=== PATIENT | female | born 2005 | race Caucasian/White ===

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

== ENCOUNTER 2024-02-15 12:43 | Outpatient (CLI) | payer BC, SELFPAY ==
--- NOTE | 2024-02-15 12:44 | US_ITS ---
PROCEDURE INFORMATION: Exam: US Left Breast, Complete Exam date and time: 02/15/2024 1:17 PM Age: 19 years old Clinical indication: Left; Breast lump TECHNIQUE: Imaging protocol: Complete ultrasound of all four quadrants of the left breast and the retroareolar regions, including ultrasound of the axilla when performed. COMPARISON: US BIOPSY BREAST LT 07/25/2023 10:30 AM FINDINGS: ULTRASOUND: Breast ultrasound findings: Sonographic images of the left 4 o'clock axis 3 cm from the nipple demonstrates well-circumscribed ovoid hypoechoic solid mass containing a clip. It is stable in size and configuration compared to prior examination dated 07/25/2023 . It measures 2.2 x 1.9 x 1.2 cm. In the left retroareolar region, Jose David replaced oval is likely an island of fibroglandular structures. Two solid lesion is not definitively seen. The area of interest measures 0.8 x 0.8 x 0.3 cm. No other solid or cystic masses in the left breast. No axillary adenopathy. IMPRESSION: Stable previously biopsied mass in the left breast. Questionable additional hypoechoic mass in the left retroareolar region. A six-month follow-up targeted left breast ultrasound is recommended to ensure stability over time. ASSESSMENT: BI-RADS Category 3: Probably benign.
== END 2024-02-15 23:59 | disposition home or self-care (01) ==
LOC: RAD 12:44
PROVIDERS: Visit Provider Surgery
DX: N63.42 Unspecified lump in left breast, subareolar (principal)
CPT/HCPCS: 76641

== ENCOUNTER 2024-04-10 11:36 | Emergency (ER) | payer BC, SELFPAY ==
[2024-04-10 11:40] VITALS: BP 121/75; PULSE 74; RESP 19; TEMP 36.8; O2SAT 100
--- NOTE | 2024-04-10 12:10 | EXP.UTC ---
Discharge Plan Disposition Patient Disposition: Home, Self-Care Condition: Good Prescriptions Prescriptions: New sulfamethoxazole-trimethoprim [Bactrim DS] 800-160 mg Tablet 1 tab PO BID Qty: 20 0RF cephalexin 500 mg capsule 500 mg PO QID 10 Days Qty: 40 0RF mupirocin 2 % ointment 1 applic topical TID 7 Days Qty: 15 0RF methylprednisolone 4 mg Tablets,Dose Pack 4 mg PO DIRECTED 6 Days Qty: 21 0RF Rx Instructions: Take 1 pack as directed for 6 days No Action norethindrone-e.estradiol-iron [Blisovi Fe 10/08 ()] 1 mg-20 mcg (21)/75 mg (7) tablet 1 tab PO DAILY Referrals Follow up/Referrals: Provider,Referral, MD [Primary Care Provider] - See instructions Activity Restrictions/Add. Instructions Additional Instructions/Restrictions: Keep the wounds clean and dry. Watch the wounds for signs of worsening infection, such as worsening redness, swelling, drainage, fever. etc. Take tylenol or ibuprofen for pain. Follow up with your regular doctor. GO TO THE ER FOR ANY WORSENING SYMPTOMS OR CONCERNS. Clinical Impressions Clinical Impression: Cellulitis, Impetigo Instructions Patient Instructions: Cellulitis, Cephalexin, Mupirocin Discharge ED Provider: Santy Marie [facility] General Stated complaint: red, swollen on right leg and hand Mode of Arrival: Ambulatory Source of Information: Patient Limitations: No Limitations Time Seen by Provider: 04/10/24 11:54 Description of Symptoms (Recalled from Triage Doc. by RN): PATIENT C/O RASH TO RIGHT LEG X 2.5 WEEKS HEENT Symptoms (Recalled from RN notes): No Resp Symptoms (Recalled from RN notes): No Skin Symptoms (Recalled from RN notes): Yes MS Symptoms (Recalled from RN notes): No Functional Status (Recalled from RN notes): WNL History of Present Illness Provider Complaint: She states that she has had worsening redness and tenderness of the front of her right lower leg. She states that she was bit by an insect before her symptoms started. Related Data Home Medications Medication Instructions Recorded Confirmed norethindrone 1 mg-ethinyl 1 tab PO DAILY 08/02/23 04/10/24 estradiol 20 mcg (21)-iron 75 mg (7) tablet (Blisovi Fe 10/08 (28)) Previous Rx's Medication Instructions Recorded cephalexin 500 mg capsule 500 mg PO QID 10 days #40 caps 04/10/24 methylprednisolone 4 mg tablets in 4 mg PO DIRECTED 6 days #21 tabs 04/10/24 a dose pack mupirocin 2 % topical ointment 1 applic topical TID 7 days #15 04/10/24 grams sulfamethoxazole 800 1 tab PO BID #20 tabs 04/10/24 mg-trimethoprim 160 mg tablet (Bactrim DS) Allergies Allergy/AdvReac Type Severity Reaction Status Date / Time No Known Allergies Allergy Verified 02/23/24 09:11 Worker's Comp Is this a Worker's Comp case?: No [facility] Disclaimer: The information contained in this section may have been updated after the patient was seen, as this information can be updated by other users. Surgical History History of tonsillectomy and adenoidectomy Social History Smoking Status: Never smoker second hand exposure: No alcohol intake: never current occupational status: employed Travel in the last 8 weeks: None household members: family housing: house ROS Obtained: Yes All systems reviewed & no additional complaints except as documented Constitutional Constitutional: Denies chills and Denies fever(s) Eyes Eyes: Denies eye discharge ENT Ears, Nose, Mouth, and Throat: Denies dizziness, Denies otalgia and Denies sore throat Cardiovascular Cardiovascular: Denies chest pain Respiratory Respiratory: Denies shortness of breath, Denies chest congestion, Denies cough, Denies stridor and Denies wheezing Gastrointestinal Gastrointestingal: Denies nausea or vomiting Musculoskeletal Musculoskeletal: Reports system reviewed and no additional complaints, except as documented and Denies arthralgias Integumentary/Breasts Skin/Breast: Reports as per HPI and Reports rash Neurologic Neurologic: Denies dizziness and Denies paresthesias Allergic/Immunologic Allergic/Immunologic: Denies wheezing Physical Exam General General appearance: alert and in no apparent distress Head Head exam: atraumatic, normocephalic and normal inspection Eye Eye exam: Present normal appearance, PERRL and EOMI ENT ENT exam: Present normal exam, normal oropharynx, mucous membranes moist, TM's normal bilaterally and normal external ear exam Neck Neck exam: Present normal inspection, full ROM and trachea midline; Absent meningismus or lymphadenopathy Chest Chest inspection: Present normal inspection and symmetric chest wall rise; Absent tenderness Respiratory Respiratory exam: Present normal lung sounds bilaterally; Absent respiratory distress Cardiovascular Cardiovascular exam: Present regular rate and normal rhythm; Absent JVD Abdominal Exam Abdominal exam: Present soft and normal bowel sounds; Absent distention, tenderness or guarding Extremities Exam Extremities exam: Present normal inspection, full ROM and normal capillary refill; Absent calf tenderness Back Exam Back exam: Present normal inspection; Absent tenderness Neurological Exam Neurological exam: Present alert and oriented X3 Psychiatric Psychiatric exam: Present normal affect and normal mood Skin Skin exam: Present erythema (there is erythema, mild swelling and several crusted lesion on her right leg. ) Lymphatic Lymphatic Findings: no adenopathy Medical Decision Making Medical Records Medical records reviewed: No I reviewed the patient's medical records. Trevon Inquiry Pt receiving controlled substance: No Vital Signs: 04/10/24 11:40 Temperature 98.2 F Temperature Source Oral Pulse Rate [Left Brachial] 74 Respiratory Rate 19 Blood Pressure [Left Arm] 121/75 Blood Pressure Mean [Left Arm] 90 Blood Pressure Source [Left Arm] Automatic Cuff Blood Pressure Position [Left Arm] Sitting 02 Sat by Pulse Oximetry 100 Oxygen Delivery Method Room Air
[2024-04-10 12:24] VITALS: BP 121/75; PULSE 74; RESP 19; TEMP 36.8; O2SAT 100
== END 2024-04-10 12:27 | disposition home or self-care (01) ==
PROVIDERS: Emergency Provider Nurse Practitioner Family
DX: L03.115 Cellulitis of right lower limb (principal); B95.61 Methicillin susceptible Staphylococcus aureus infection as the cause of diseases classified elsewhere; L01.00 Impetigo, unspecified
CPT/HCPCS: 87070; 87077; 87186; 87205; 99212; 99214; G0463

== ENCOUNTER 2024-09-05 11:06 | Outpatient (CLI) | payer BC, SELFPAY ==
--- NOTE | 2024-09-05 11:07 | US_ITS ---
PROCEDURE INFORMATION: Exam: US Left Breast, Complete US Right Breast, Complete Exam date and time: 09/05/2024 11:13 AM Age: 19 years old Clinical indication: Short-term radiographic follow-up of the questionable left breast mass. Palpable abnormality in the right upper outer quadrant. TECHNIQUE: Imaging protocol: Complete ultrasound of all four quadrants of the left breast and the retroareolar regions, including ultrasound of the axilla when performed. Complete ultrasound of all four quadrants of the right breast and the retroareolar regions, including ultrasound of the axilla when performed. COMPARISON: US BREAST LT COMPLETE 02/15/2024 1:17 PM FINDINGS: ULTRASOUND: Breast ultrasound findings: Sonographic images of the right breast demonstrates 6 uniformly hypoechoic well-circumscribed solid masses 1 of which correlates with the patient's complaint of a palpable abnormality in the right 10 o'clock axis 9 cm from the nipple. The masses are noted as follows: Palpable right 10 o'clock axis 9 cm from the nipple 1.2 x 0.7 x 1.1 cm, 7 o'clock axis 4 cm from the nipple 1.0 x 1.0 x 0.8 cm, 10 o'clock axis 5 cm from the nipple 1.1 x 1.2 x 0.7 cm, 10 o'clock axis 4 cm from the nipple 0.4 x 0.8 x 0.2 cm, 12 o'clock axis 3 cm from the nipple 1.2 x 1.0 x 0.6 cm, and 12 o'clock axis 4 cm from the nipple 0.7 x 0.9 x 0.4 cm. No axillary adenopathy. Sonographic images of the left breast demonstrates 2 hypoechoic solid masses, 1 of which underwent prior biopsy in the 4 o'clock axis 3 cm from the nipple and measures 1.8 x 1.2 x 2.0 cm. The second solid mass is noted in the 2 o'clock axis 3 cm from the nipple measuring 0.6 x 0.4 x 0.6 cm. No focal masses in the retro areolar region. No axillary adenopathy. IMPRESSION: Palpable abnormality in the right breast corresponds to 1 of 8 solid masses noted bilaterally. Their multiplicity and uniformity are highly suggestive of a benign etiology such as multiple fibroadenomas. A six-month follow-up bilateral breast ultrasound is recommended to ensure stability over time ASSESSMENT: BI-RADS Category 3: Probably benign.
== END 2024-09-05 23:59 | disposition home or self-care (01) ==
LOC: RAD 11:07
PROVIDERS: PCP Surgery; Visit Provider Surgery
DX: D24.2 Benign neoplasm of left breast (principal); N63.11 Unspecified lump in the right breast, upper outer quadrant
CPT/HCPCS: 76641

== ENCOUNTER 2025-03-18 07:48 | Outpatient (CLI) | payer OTHER, SELFPAY ==
--- OUTSIDE RECORDS SUMMARY | 2025-01-31 13:00 | XMS_ITS | Encounter Summary ---
Author Organization Healthcare Address [address] [place] [address] Care Team Providers Care Package Pick Up Name Role Phone Pcp, No Primary Care Provider Unavailabl e Reason for Visit * Reason Comments Annual Exam Here for annual with pap. Encounter Details Date Type Department Care Team (Late st Contact Info) Description 01/31/2025 1:00 PM EDT Procedure Visit Obstetrics & Gynecology [address] [place] [address] Dena Phoenix APRN, DNP [address] [place] [address] Encounter for gynecological examination without [...] nursing note reviewed. Exam conducted with a automotive engineer present. Pap collected today. Assessment Assessment & [...] EDT Office Visit Obstetrics & Gynecology [address] [place] [address] Agatha Bauer APRN, CHRISTINE [address] [place] [address] documented as of this encounter Procedures Procedure Name Priority Date/Time Associated Diagnosis Comments REFERRED THINPREP PAP REFLEX TO HPV (SO) Routine 01/31/2025 1:23 PM EDT Encounter for gynecological examination without abnormal finding documented in this encounter Results * Referred ThinPrep Pap Reflex to HPV (SO) (01/31/2025 1:23 PM EDT) Pap, Source Cx/Vagina 02/07/2025 12:21 PM EDT [facility] ([facility]) EER Referred ThinPrep Pap Test See Note 02/07/2025 12:21 PM EDT [facility] ([facility]) Pap, ThinPrep Normal 02/07/2025 12:21 PM EDT [facility] ([facility]) Swab Vaginal and cervical cytologic material / Unknown Non-blood Collection / Unknown 01/31/2025 1:23 PM EDT 01/31/2025 5:49 PM EDT Narrative [facility] ([facility]) - 02/07/2025 12:21 PM EDT Authorized individuals can access the [facility] Enhanced Report with an [facility] Connect account using the following link. Your local lab can assist you in obtaining the patient report if you don't have a Connect account. [email or web address] Performed By: [facility] [address] [place] [address] Marketing Producer: Jordan Olson MD, PhD CLIA Number: [id number] SPECIMEN PART A. Cervical, Endocervical, Vaginal, ThinPrep Pap (Occ Ther) CYTOLOGY HX Date of Last Menstrual Period: n FINAL DIAGNOSIS INTERPRETATION: Negative for Intraepithelial Lesion or Malignancy. SPECIMEN ADEQUACY:Satisfactory for evaluation. Endocervical/transformation zone component present. Electronically Signed Out : Gayle Franklin Performed by: [facility] [address] [place] [address] Tiarra Vinson MD, us Dena Phoenix APRN, DNP LAB REF LAB BLOOD AND F LUID ORD Final Result [facility] ([facility]) [address] [place] [address] documented in this encounter Visit Diagnoses Diagnosis [...] documented as of this encounter Care Teams Package Pick Up Relationship Specialty Start Date End Date Pcp, [place] [address] PCP - General Family Medicine 12/31/24 documented as of this encounter
--- OUTSIDE RECORDS SUMMARY | 2025-03-18 07:51 | XMS_ITS | Clinical Summary ---
Author Organization Healthcare Address [address] [place] [address] Care Team Providers Care Slasher Operator Name Role Phone Pcp, No Primary Care Provider Unavailabl e Allergies No known active allergies Medications Guerline ROMERO 10/08 1-20 MG-MCG tablet 12/24/2024 Active Active Problems No known active problems Encounters Date Type Department Care Team Description 02/07/2025 Results Follow-Up Obstetrics & Gynecology [address] [place] [address] Dena Phoenix APRN, DNP 01/31/2025 1:00 PM EDT Procedure Visit Obstetrics & Gynecology [address] [place] [address] Dena Phoenix APRN, DNP Encounter for gynecological examination without abnormal finding (Primary Dx); Encounter for control pills maintenance; Fibroadenoma of both breasts 01/31/2025 Travel 01/24/2025 Travel 01/04/2025 Telephone Obstetrics & Gynecology [address] [place] [address] Dena Phoenix APRN, DNP HCN Clinical Concern/Question 12/31/2024 1:30 PM EDT Office Visit Obstetrics & Gynecology [address] [place] [address] Dena Phoenix APRN, DNP Palpable mass of breast (Primary Dx); Fibroadenoma of both breasts 12/31/2024 Travel 12/24/2024 Travel from Last 3 Months Family History Medical History Relation Name Comments Lupus Mother Relation Name Status Comments Father Alive Mother Alive Paternal Grandmother Alive Social History Tobacco Use Types Packs/Day Years [...] on file Sexual Orientation Not on file Last Filed Vital Signs Vital Sign Reading Time Taken Comments Blood Pressure 112/70 01/31/2025 1:09 PM EDT Pulse 96 01/31/2025 1:09 PM EDT Temperature 37.2 C (98.9 F) 12/31/2024 1:31 PM EDT Respiratory Rate 14 01/31/2025 1:09 PM EDT Oxygen Saturation 99% 01/31/2025 1:09 PM EDT Inhaled Oxygen Concentration - - Weight 67.3 kg (148 lb 5.9 oz) 01/31/2025 1:09 P M EDT Height 177.8 cm (5' 10 ) 01/31/2025 1:09 PM EDT Body Mass Index 21.29 01/31/2025 1:09 PM EDT Plan of Treatment Upcoming Encounters Date Type Department Care Team (Late st Contact Info) Description 02/04/2026 1:00 PM EDT Office Visit Obstetrics & Gynecology [address] [place] [address] Agatha Bauer, SOFTBALL WINDER, CNM [address] [facility] [address] [place] [address] Health Maintenance Due Date Last Done Comments [facility]-Chlamydia and Gonorrhea Screening 2004 [facility]-HIV Screening 2004 [facility]-Hepatitis C Screening 2004 [facility]-Infant/Child/Adol SDOH Screenings 2004 [facility]-IPV Vaccines (2 of 3 - 4-dose series) 02/01/2008 01/04/2008 [id number] Vaccine (#1) 01/02/2009 HPV Vaccines (3 - Risk 3-dose series) 12/13/2017 08/15/2017, 08/09/2016 [facility]- SDOH Screenings 01/02/2022 [facility]-Adult SDOH Screenings 01/02/2022 [facility]-Pneumococcal Vaccine: Pediatrics (0 to 5 Years) and At-Risk Patients (6 to 49 Years) (1 of 2 - PCV) 01/02/2023 [facility]-Zoster Vaccines (1 of 2) 01/02/2023 01/04/2008, 01/05/2005 [facility]-Pap Smear 01/02/2025 [facility]-DTaP,Tdap,and Td Vaccines (6 - Td or Tdap) 02/19/2025 02/19/2015, 04/12/2005, 2004, Additional history exists [facility]-Influenza Vaccine (Season Ended) 2025 09/10/2020, 08/15/2017, 08/09/2016, Additional history exists [facility]-Depression Screening 12/31/2025 12/31/2024 [facility]-Hepatitis B Vaccines Completed 004, 2004, 2004 [facility]-Varicella Vaccines Completed 01/04/2008, 2004 [facility]-HIB Vaccines Aged Out No longer e ligible based on patient's age to complete this topic [facility]-Hepatitis A Vaccines Aged Out No longer eligible based on patient's age to complete this topic [facility]-Rotavirus Vaccines Aged Out No lo nger eligible based on patient's age to complete this topic Procedures Procedure Name Priority Date/Time Associated Diagnosis Comments REFERRED THINPREP PAP REFLEX TO HPV (SO) Routine 01/31/2025 1:23 PM EDT Encounter for gynecological examination without abnormal finding from Last 3 Months Results * Referred ThinPrep Pap Reflex to HPV (SO) (01/31/2025 1:23 PM EDT) Pap, Source Cx/Vagina 02/07/2025 12:21 PM EDT [facility] ([facility]) EER Referred ThinPrep Pap Test See Note 02/07/2025 12:21 PM EDT [facility] ([facility]) Pap, ThinPrep Normal 02/07/2025 12:21 PM EDT [facility] ([facility]) Swab Vaginal and cervical cytologic material / Unknown Non-blood Collection / Unknown 01/31/2025 1:23 PM EDT 01/31/2025 5:49 PM EDT Narrative [facility]) - 02/07/2025 12:21 PM EDT Authorized individuals can access the [email or web address] Enhanced Report with an [facility] Connect account using the following link. Your local lab can assist you in obtaining the patient report if you don't have a Connect account. [email or web address] Performed By: [facility] [address] [place] [address] Block Mason: Jordan Olson MD, PhD CLIA Number: [id number] SPECIMEN PART A. Cervical, Endocervical, Vaginal, ThinPrep Pap (Senior Category Manager) CYTOLOGY HX Date of Last Menstrual Period: n FINAL DIAGNOSIS INTERPRETATION: Negative for Intraepithelial Lesion or Malignancy. SPECIMEN ADEQUACY:Satisfactory for evaluation. Endocervical/transformation zone component present. Electronically Signed Out : Gayle Franklin Performed by: [facility] [place] [address] Tiarra Vinson MD, us Dena Phoenix APRN, DNP LAB REF LAB BLOOD AND F LUID ORD Final Result [facility]) [address] [place] [address] from Last 3 Months Insurance [facility] MEDICAID Care Teams Slasher Operator Relationship Specialty Start Date End Date Pcp, Bharti [address] [place] [address] PCP - General Family Medicine 12/31/24
--- OUTSIDE RECORDS SUMMARY | 2025-03-18 07:51 | XMS_ITS | Patient Health Record ---
Author Organization [facility] Address [address] [place] [address] [place] [address] Care Team Providers Care Shelter Case Manager Name Role Phone Mendy Stanton Primary Care Provider [phone] MENDY STANTON Unavailable Unavaila ble Allergies No Known Allergies Reason For Referral No Information Social History Tobacco Use: Social History Observation Description Date Details (start date - stop date) Never Smoker NA - NA Smoking: Question Answer Notes Are you a: nonsmoker Problems Problem Type SNOMED Code ICD Code Onset Dates Problem Status W/U Status Risk Notes Problem Mass of lower outer quadrant of left breast (N63.23) Active confirmed Plan Of Treatment No Information Insurance Providers Payer Name Payer Address Payer Phone Subscriber Number Group Number Insured Name Patient Relationship to Insured Coverage Start Date Coverage End Date [employer] [address] [address] [place] [address] [id number] Sharmila Nava Self - patient is the insured Medical (General) History Surgical History Surgery Date(Month/Year) Tonsils and Adenoids removed 2009
--- OUTSIDE RECORDS SUMMARY | 2025-03-18 07:51 | XMS_ITS | Encounter Summary ---
Author Organization Healthcare Address [address] [place] [address] Care Team Providers Care Offset Pressman Name Role Phone Pcp, No Primary Care Provider Unavailabl e Encounter Details Date Type Department Care Team (Late st Contact Info) Description 02/07/2025 Results Follow-Up Obstetrics & Gynecology [address] [place] [address] Dena Phoenix, TERESA, DNP [address] [place] [address] Social History Tobacco Use Types Packs/Day Years Used Date Smoking Tobacco: Never Smokeless Tobacco: Never Alcohol Use Standard Drinks/Week Comments Never 0 (1 standard drink = 0.6 oz pur e alcohol) PHQ-2 Answer Date Recorded Patient Health Questionnaire-2 Score 0 12/31/2024 Comments No Sex and Gender Information Value Date Recorded Sex Assigned at Not on file Legal Sex Female 2:36 PM EST Gender Identity Not on file Sexual Orientation Not on file documented as of this encounter Plan of Treatment Upcoming Encounters Date Type Department Care Team (Late st Contact Info) Description 02/04/2026 1:00 PM EDT Office Visit Obstetrics & Gynecology [address] [place] [address] Agatha Bauer, STOCK CONTROL CLERK, CNM [address] [facility] [address] [place] [address] documented as of this encounter Visit Diagnoses Not on filedocumented in this encounter Additional Health Concerns Assessment Noted Time A fall risk assessment has been complete d for the patient 01/31/2025 1:10 PM EDT A Body Mass Index follow-up plan has been documented for the patient 01/31/2025 1:26 PM EDT documented as of this encounter Care Teams Offset Pressman Relationship Specialty Start Date End Date Pcp, [place] [address] PCP - General Family Medicine 12/31/24 documented as of this encounter
--- OUTSIDE RECORDS SUMMARY | 2025-03-18 07:51 | XMS_ITS | Encounter Summary ---
Author Organization Healthcare Address [address] [place] [address] Care Team Providers Care Theatre Manager Name Role Phone Pcp, No Primary Care Provider Unavailabl e Encounter Details Date Type Department Care Team (Latest Contact Info) Description 01/24/2025 Travel Social History Tobacco Use Types Packs/Day Years Used Date Smoking Tobacco: Never Smokeless Tobacco: Never Alcohol Use Standard Drinks/Week Comments Never 0 (1 standard drink = 0.6 oz pur e alcohol) PHQ-2 Answer Date Recorded Patient Health Questionnaire-2 Score 0 12/31/2024 Comments Unknown Sex and Gender Information Value Date Recorded Sex Assigned at Not on file Legal Sex Female 2:36 PM EST Gender Identity Not on file Sexual Orientation Not on file documented as of this encounter Plan of Treatment Upcoming Encounters Date Type Department Care Team (Late st Contact Info) Description 02/04/2026 1:00 PM EDT Office Visit Obstetrics & Gynecology [address] [place] [address] Agatha Bauer, LEAD PERFORMANCE SUPPORT ANALYST, CNM [address] [facility] [address] [place] [address] documented as of this encounter Visit Diagnoses Not on filedocumented in this encounter Additional Health Concerns Assessment Noted Time A fall risk assessment has been complete d for the patient 12/31/2024 1:34 PM EDT A Body Mass Index follow-up plan has been documented for the patient 01/01/2025 7:55 AM EDT documented as of this encounter Care Teams Theatre Manager Relationship Specialty Start Date End Date Pcp, Bharti [address] [place] [address] PCP - General Family Medicine 12/31/24 documented as of this encounter
--- OUTSIDE RECORDS SUMMARY | 2025-03-18 07:51 | XMS_ITS | Encounter Summary ---
Author Organization Healthcare Address [address] [place] [address] Care Team Providers Care Senior Painter Name Role Phone Pcp, No Primary Care Provider Unavailabl e Encounter Details Date Type Department Care Team (Latest Contact Info) Description 01/31/2025 Travel Social History Tobacco Use Types Packs/Day [...] EDT Office Visit Obstetrics & Gynecology [address] [place] [address] Agatha Bauer, PAY CLERK, CNM [address] [facility] [address] [place] [address] documented as of this encounter Visit Diagnoses Not on filedocumented in this encounter Additional Health Concerns Assessment Noted Time A fall risk assessment has been complete d for the patient 01/31/2025 1:10 PM EDT A Body Mass Index follow-up plan has been documented for the patient 01/31/2025 1:26 PM EDT documented as of this encounter Care Teams Senior Painter Relationship Specialty Start Date End Date Pcp, No [address] [place] [address] PCP - General Family Medicine 12/31/24 documented as of this encounter
--- NOTE | 2025-03-18 07:52 | US_ITS ---
PROCEDURE INFORMATION: Exam: US Right Breast, Complete US Left Breast, Complete Exam date and time: 03/18/2025 8:27 AM Age: 20 years old Clinical indication: Six-month follow-up for probably benign masses, initiated 07/05/2023 and 09/05/2024. TECHNIQUE: Imaging protocol: Complete ultrasound of all four quadrants of the right breast and the retroareolar regions, including ultrasound of the axilla when performed. Complete ultrasound of all four quadrants of the left breast and the retroareolar regions, including ultrasound of the axilla when performed. COMPARISON: US BREAST RT COMPLETE 09/05/2024 11:24 AM US BREAST LT COMPLETE 07/05/2023 2:37 PM FINDINGS: ULTRASOUND: Breast ultrasound findings: Ultrasound images of both breasts including the retroareolar regions, all 4 quadrants and the axilla. Bilateral oval solid avascular masses. On the right at 7 o'clock 4 cm from the nipple measuring 0.9 x 0.9 x 0.6 cm which measured 1.0 x 1.0 x 0.8 cm on 09/05/2024; at 10 o'clock 9 cm from the nipple measuring 1.2 x 1.3 x 0.7 cm which measured 1.2 x 0.7 x 1.1 cm on 09/05/2024; at 10 o'clock 5 cm from the nipple measuring 1.0 by 1.2 x 0.6 cm which measured 1.2 x 0.7 x 1.2 cm on 09/05/2024; and at 10 o'clock 4 cm from the nipple measuring 1.1 x 1.0 x 0.5 cm - this is a finding; however, previously, the mass annotated at 10 o'clock 4 cm from the nipple on 09/05/2024 is more superficial. Sonographically unremarkable axillary lymph node. On the left, at 2 o'clock 3 cm from the nipple measuring 1.0 x 1.0 x 0.6 cm which measured 0.6 x 0.6 x 0.4 cm on 09/05/2024; and at 4 o'clock 3 cm from the nipple measuring 2.1 x 1.8 x 1.0 cm, with related biopsy clip, which measured 1.8 x 1.5 x 2.0 cm on 07/05/2023. No findings are annotated in the retro areolar region. Sonographically unremarkable axillary lymph node. IMPRESSION: See comments There are probably 2 masses on the right at 10 o'clock 4 cm from the nipple, deep and superficial and suggest recall for targeted sonography at this location. Otherwise, similar probably benign bilateral masses, the dominant mass on the left at 3 o'clock with notation indicating fibroadenoma, with continued six-month follow up bilateral sonography recommended unless otherwise clinically indicated. ASSESSMENT: BI-RADS Category 0: Incomplete: Need Additional Imaging Evaluation.
== END 2025-03-18 23:59 | disposition home or self-care (01) ==
LOC: RAD 07:49
PROVIDERS: Visit Provider Surgery
DX: N63.23 Unspecified lump in the left breast, lower outer quadrant (principal); N63.13 Unspecified lump in the right breast, lower outer quadrant; N63.21 Unspecified lump in the left breast, upper outer quadrant; N63.11 Unspecified lump in the right breast, upper outer quadrant; N63.25 Unspecified lump in the left breast, overlapping quadrants
CPT/HCPCS: 76641

== ENCOUNTER 2025-04-01 08:10 | Outpatient (CLI) | payer OTHER, SELFPAY ==
--- OUTSIDE RECORDS SUMMARY | 2025-01-31 13:00 | XMS_ITS | Encounter Summary ---
Author Organization Healthcare Address [address] [place] [address] Care Team Providers Care Grease Man Name Role Phone Pcp, No Primary Care Provider Unavailabl e Reason for Visit * Reason Comments Annual Exam Here for annual with pap. Encounter Details Date Type Department Care Team (Late st Contact Info) Description 01/31/2025 1:00 PM EDT Procedure Visit Obstetrics & Gynecology [address] [place] [address] Dena Phoenix APRN, DNP [address] [place] [address] Encounter for gynecological examination without abnormal finding (Primary Dx); Encounter for control pills maintenance; Fibroadenoma of both breasts Social History Tobacco Use Types Packs/Day Years Used Date Smoking Tobacco: Never Smokeless Tobacco: Never Tobacco Cessation:Counseling Given: Not Answered Alcohol Use Standard Drinks/Week Comments Never 0 (1 standard drink = 0.6 oz pur e alcohol) PHQ-2 Answer Date Recorded Patient Health Questionnaire-2 Score 0 12/31/2024 Comments No Sex and Gender Information Value Date Recorded Sex Assigned at Not on file Legal Sex Female 2:36 PM EST Gender Identity Not on file Sexual Orientation Not on file documented as of this encounter Last Filed Vital Signs Vital Sign Reading Time Taken Comments Blood Pressure 112/70 01/31/2025 1:09 PM EDT Pulse 96 01/31/2025 1:09 PM EDT Temperature - - Respiratory Rate 14 01/31/2025 1:09 PM EDT Oxygen Saturation 99% 01/31/2025 1:09 PM EDT Inhaled Oxygen Concentration - - Weight 67.3 kg (148 lb 5.9 oz) 01/31/2025 1:09 P M EDT Height 177.8 cm (5' 10 ) 01/31/2025 1:09 PM EDT Body Mass Index 21.29 01/31/2025 1:09 PM EDT documented in this encounter Miscellaneous Notes * Progress Notes - Dena Phoenix, TERESA, RENA - 01/31/2025 1:00 PM EDT Gynecology Health Maintenance Note Subjective Sharmila Nava is a 20 y.o. in relationship, sexually active, here for a routine gynecologyhealth maintenance visit. Here today for annual exam. Has regular monthly cycles. She is currently on OCP for management of /cycle control needs. She bleeds during expected placebo week. Due first pap smear screening today. Has been receiving breast imaging q6mo to document stability of fibroadenomas within left breast. Next imaging scheduled for 02/2025. Denies bowel/bladder issues. Denies vaginal concerns including itch/odor/burn/discharge. Denies STD history or need for screening today. No further questions or concerns today. LMP: 01/26/25 Cycles: regular monthly bleed 4-5 days Contraception: OCP Pap: due Family hx: PGGM, maternal great aunt, paternal cousin- breast cancer The following chart sections have been reviewed and updated: Tobacco Allergies Meds Problems Med Hx Surg Hx OB Status Fam Hx Review of Systems Constitutional: Negative. HENT: Negative. Eyes: Negative. Respiratory: Negative. Cardiovascular: Negative. Gastrointestinal: Negative. Endocrine: Negative. Genitourinary: Negative. Musculoskeletal: Negative. Skin: Negative. Allergic/Immunologic: Negative. Neurological: Negative. Hematological: Negative. Psychiatric/Behavioral: Negative. Objective Visit Vitals BP 112/70 Pulse 96 Resp 14 Body mass index is 21.29 kg/m??. Physical Exam Constitutional: Appearance: Normal appearance. Genitourinary: Vulva normal. Right Labia: No rash, tenderness, lesions or skin changes. Left Labia: No tenderness, lesions, skin changes or rash. Vaginal bleeding (minimal) present. No vaginal discharge, erythema or tenderness. Right Adnexa: not tender and no mass present. Left Adnexa: not tender and no mass present. No cervical friability. Uterus is not enlarged. Breasts: Breast exam comments: Deferred due to recent exam and upcoming breast imaging. HENT: Head: Normocephalic. Neck: Thyroid: No thyromegaly. Cardiovascular: Rate and Rhythm: Normal rate and regular rhythm. Heart sounds: Normal heart sounds. Pulmonary: Effort: Pulmonary effort is normal. Breath sounds: Normal breath sounds. Abdominal: General: Bowel sounds are normal. Palpations: Abdomen is soft. There is no mass. Tenderness: There is no abdominal tenderness. Neurological: Mental Status: She is alert and oriented to person, place, and time. Skin: General: Skin is warm and dry. Psychiatric: Mood and Affect: Mood normal. Behavior: Behavior normal. Vitals and nursing note reviewed. Exam conducted with a assistant inventory manager present. Pap collected today. Assessment Assessment & Plan Encounter for gynecological examination without abnormal finding Orders: Referred ThinPrep Pap Reflex to HPV (SO) Encounter for control pills maintenance Fibroadenoma of both breasts -If pap WNL, plan to repeat in 3 yrs. -Continue OCP as prescribed. She does not need refills at this time, but enc to call if needs before next apt. -She has prescheduled imaging of breast tissue set for 02/2025 for re-evaluation of known fibroadenoma(s). -Reviewed health maintenance including diet, regular exercise, dietary supplementation and periodicexams. -Answered all patient questions. Agreeable to POC. -RTC prn or annually Time Spent: I personally spent a total of 25 minutes on this encounter. This time includes face to face with patient, counseling and discussion and/or coordination of care. documented in this encounter Plan of Treatment Upcoming Encounters Date Type Department Care Team (Late st Contact Info) Description 02/04/2026 1:00 PM EDT Office Visit Obstetrics & Gynecology [address] [place] [address] Agatha Bauer APRN, CHRISTINE [address] [place] [address] documented as of this encounter Procedures Procedure Name Priority Date/Time Associated Diagnosis Comments REFERRED THINPREP PAP REFLEX TO HPV (SO) Routine 01/31/2025 1:23 PM EDT Encounter for gynecological examination without abnormal finding documented in this encounter Results * Referred ThinPrep Pap Reflex to HPV (SO) (01/31/2025 1:23 PM EDT) Pap, Source Cx/Vagina 02/07/2025 12:21 PM EDT [facility] EER Referred ThinPrep Pap Test See Note 02/07/2025 12:21 PM EDT [facility] Pap, ThinPrep Normal 02/07/2025 12:21 PM EDT [facility] Swab Vaginal and cervical cytologic material / Unknown Non-blood Collection / Unknown 01/31/2025 1:23 PM EDT 01/31/2025 5:49 PM EDT Narrative [facility]) - 02/07/2025 12:21 PM EDT Authorized individuals can access the [facility] Enhanced Report with an [facility] Connect account using the following link. Your local lab can assist you in obtaining the patient report if you don't have a Connect account. [email or web address] Performed By: [facility] [address] [place] [id number] Fusion Operator: Jordan Olson MD, PhD CLIA Number: [id number] SPECIMEN PART A. Cervical, Endocervical, Vaginal, ThinPrep Pap (Mixer Crane Operator) CYTOLOGY HX Date of Last Menstrual Period: n FINAL DIAGNOSIS INTERPRETATION: Negative for Intraepithelial Lesion or Malignancy. SPECIMEN ADEQUACY:Satisfactory for evaluation. Endocervical/transformation zone component present. Electronically Signed Out : Gayle Franklin Performed by: [facility] [address] [place] [address] Tiarra Vinson MD, us Dena Phoenix APRN, DNP LAB REF LAB BLOOD AND F LUID ORD Final Result [facility] [address] [place] [address] documented in this encounter Visit Diagnoses Diagnosis Encounter for gynecological examination without abnormal finding- Primary Encounter for control pills maintenance Surveillance of previously prescribed contraceptive pill Fibroadenoma of both breasts documented in this encounter Additional Health Concerns Assessment Noted Time A fall risk assessment has been complete d for the patient 01/31/2025 1:10 PM EDT A Body Mass Index follow-up plan has been documented for the patient 01/31/2025 1:26 PM EDT documented as of this encounter Care Teams Grease Man Relationship Specialty Start Date End Date Pcp, [place] [address] PCP - General Family Medicine 12/31/24 documented as of this encounter
--- OUTSIDE RECORDS SUMMARY | 2025-04-01 08:12 | XMS_ITS | Encounter Summary ---
Author Organization Healthcare Address [address] [place] [address] Care Team Providers Care Product Tester Name Role Phone Pcp, No Primary Care Provider Unavailabl e Encounter Details Date Type Department Care Team (Late st Contact Info) Description 02/07/2025 Results Follow-Up Obstetrics & Gynecology [address] [place] [address] Dena Phoenix, TERESA, DNP [address] [place] [address] Social History Tobacco Use Types [...] EDT Office Visit Obstetrics & Gynecology [address] [place] [address] Agatha Bauer, PHYSICIAN PRACTICE MANAGER, CNM [address] [facility] [address] [place] [address] documented as of this encounter Visit Diagnoses Not on filedocumented in this encounter Additional Health Concerns Assessment Noted Time A fall risk assessment has been complete d for the patient 01/31/2025 1:10 PM EDT A Body Mass Index follow-up plan has been documented for the patient 01/31/2025 1:26 PM EDT documented as of this encounter Care Teams Product Tester Relationship Specialty Start Date End Date Pcp, [place] [address] PCP - General Family Medicine 12/31/24 documented as of this encounter
--- OUTSIDE RECORDS SUMMARY | 2025-04-01 08:12 | XMS_ITS | Encounter Summary ---
Author Organization Healthcare Address [address] [place] [address] Care Team Providers Care Chainstitch Hemmer Name Role Phone Pcp, No Primary Care [...] EDT Office Visit Obstetrics & Gynecology [address] [place] [address] Agatha Bauer, CLINICAL DATA MANAGEMENT MANAGER, CNM [address] [facility] [address] [place] [address] documented as of this encounter Visit Diagnoses Not on filedocumented in this encounter Additional Health Concerns Assessment Noted Time A fall risk assessment has been complete d for the patient 01/31/2025 1:10 PM EDT A Body Mass Index follow-up plan has been documented for the patient 01/31/2025 1:26 PM EDT documented as of this encounter Care Teams Chainstitch Hemmer Relationship Specialty Start Date End Date Pcp, No [address] [place] [address] PCP - General Family Medicine 12/31/24 documented as of this encounter
--- OUTSIDE RECORDS SUMMARY | 2025-04-01 08:12 | XMS_ITS | Patient Health Record ---
Author Organization [facility] D [facility] Address [address] [place] [address] Care Team Providers Care Mirror Framer Name Role Phone Mendy Stanton Primary Care Provider [phone] MENDY STANTON Unavailable Unavaila ble Allergies [...] End Date [employer]ICA[employer] [address] [address] [place] [address] [id number] Sharmila Nava Self - patient is the insured Medical (General) History Surgical History Surgery Date(Month/Year) Tonsils and Adenoids removed 2009
--- OUTSIDE RECORDS SUMMARY | 2025-04-01 08:12 | XMS_ITS | Clinical Summary ---
Author Organization Healthcare Address [address] [place] [address] Care Team Providers Care Postdoctoral Fellow Name Role Phone Pcp, No Primary Care Provider Unavailabl e Allergies No known active allergies Medications Guerline ROMERO 10/08 1-20 MG-MCG tablet 12/24/2024 Active Active Problems No known active problems Encounters Date Type Department Care Team Description 02/07/2025 Results Follow-Up Obstetrics & Gynecology [address] [place] [address] Dena Phoenix APRN, DNP 01/31/2025 1:00 PM EDT Procedure Visit Obstetrics & Gynecology [address] [place] [address] Dena Phoenix APRN, DNP Encounter for gynecological examination without abnormal finding (Primary Dx); Encounter for control pills maintenance; Fibroadenoma of both breasts 01/31/2025 Travel 01/24/2025 Travel 01/04/2025 Telephone Obstetrics & Gynecology [address] [place] [address] Dena Phoenix APRN, DNP [facility] Clinical Concern/Question 12/31/2024 1:30 PM EDT Office Visit Obstetrics & Gynecology [address] [place] [address] Dena Phoenix APRN, DNP Palpable mass of breast (Primary Dx); Fibroadenoma of both breasts 12/31/2024 Travel from Last 3 Months Family History [...] EDT Office Visit Obstetrics & Gynecology [address] [place] [address] Agatha Bauer, MOP WORKER, CNM [address] [facility] [address] [place] [address] Health Maintenance Due Date Last Done Comments [facility]-Chlamydia and Gonorrhea Screening 2004 [facility]-HIV Screening 2004 [facility]-Hepatitis C Screening 2004 [facility]-/Child/Adol SDOH Screenings 2004 [facility]-IPV Vaccines (2 of 3 - 4-dose series) 02/01/2008 01/04/2008 [id number] Vaccine (#1) 01/02/2009 HPV Vaccines (3 - [...] 04/12/2005, 2004, Additional history exists [facility]-Influenza Vaccine (#1) 05/20/202509/10, 08/15/2017, 08/09/2016, Additional history exists [facility]-Depression Screening [...] Cx/Vagina 02/07/2025 12:21 PM EDT [facility] ([employer]) EER Referred ThinPrep Pap Test See Note 02/07/2025 12:21 PM EDT [facility] ([employer]) Pap, ThinPrep Normal 02/07/2025 12:21 PM EDT [facility] ([employer]) Swab Vaginal and cervical cytologic material / Unknown Non-blood Collection / Unknown 01/31/2025 1:23 PM EDT 01/31/2025 5:49 PM EDT Narrative AZ[facility] JUÁREZ) - 02/07/2025 12:21 PM EDT Authorized individuals can access the [facility] Enhanced Report with an [facility] Connect account using the following link. Your local lab can assist you in obtaining the patient report if you don't have a Connect account. [email or web address] Performed By: [facility] [address] [id number] Orthopedically Impaired Teacher: Jordan Olson MD, PhD CLIA Number: [id number] SPECIMEN PART A. Cervical, Endocervical, Vaginal, ThinPrep Pap (Grease Maker Head) CYTOLOGY HX Date of Last Menstrual Period: n FINAL DIAGNOSIS INTERPRETATION: Negative for Intraepithelial Lesion or Malignancy. SPECIMEN ADEQUACY:Satisfactory for evaluation. Endocervical/transformation zone component present. Electronically Signed Out : Gayle Franklin Performed by: [facility] [address] [place] [address] Tiarra Vinson MD, us Dena Phoenix APRN, [facility] REF LAB BLOOD AND F LUID ORD Final Result [facility] JUÁREZ) [address] [place] [address] from Last 3 Months Insurance [facility] MEDICAID Care Teams Postdoctoral Fellow Relationship Specialty Start Date End Date Pcp, [place] [address] PCP - General Family Medicine 12/31/24
--- NOTE | 2025-04-01 08:30 | US_ITS ---
PROCEDURE INFORMATION: Exam: US Right Breast Limited Exam date and time: 04/01/2025 8:33 AM Age: 20 years old Clinical indication: Callback for additional assessment specifically of the 10 o'clock right breast 4 cm from the nipple which were characterized on 03/18/2025 TECHNIQUE: Imaging protocol: Limited ultrasound of right breast with image documentation, including axilla when performed. Exam focused on the search and evaluation for mass. COMPARISON: 09/05/2024, 03/18/2025 FINDINGS: ULTRASOUND: Breast ultrasound findings: Targeted ultrasound of the 10 o'clock axis right breast The more superficial 10 o'clock right breast 4 cm from nipple mass measures 0.7 x 0.3 x 0.5 cm, previously 0.4 x 0.8 x 0.2 cm 08/20/2024 10 o'clock right breast 5 cm from the nipple mass measures 1.1 x 0.6 x 1.2 cm compared with 1.1 x 0.7 x 1.2 cm on 09/05/2024 IMPRESSION: Stable sonographic appearance of numerous bilateral solid breast masses dating back to 09/05/2024. Continued surveillance is recommended with bilateral ultrasound in section lungs ASSESSMENT: BI-RADS category 3: Probably benign
== END 2025-04-01 23:59 | disposition home or self-care (01) ==
LOC: RAD 08:10
PROVIDERS: Visit Provider Surgery
DX: N63.11 Unspecified lump in the right breast, upper outer quadrant (principal)
CPT/HCPCS: 76642

== ENCOUNTER 2025-05-18 10:46 | Outpatient (CLI) | payer OTHER, SELFPAY ==
[2025-05-18 21:20] LABS: Coronavirus 19, PCR Not Detected (NotDetected); Influenza A, PCR Not Detected (NotDetected); Influenza B, PCR Not Detected (NotDetected)
--- OUTSIDE RECORDS SUMMARY | 2025-05-21 10:50 | XMS_ITS | Clinical Summary ---
Author Organization Healthcare Address [address] [place] [address] Care Team Providers Care Vector Control Assistant Name Role Phone Pcp, No Primary Care Provider Unavailabl e Allergies No known active allergies Medications Guerline ROMERO 10/08 1-20 MG-MCG tablet 12/24/2024 Active Active Problems No known active problems Family History Medical History Relation Name Comments [...] EDT Office Visit Obstetrics & Gynecology [address] [place] [address] Agatha Bauer, GROUND CREW CHIEF, CNM [address] [place] [address] Health Maintenance Due Date Last Done Comments [facility]-Chlamydia and Gonorrhea Screening 2004 [facility]-HIV Screening 2004 [facility]-Hepatitis C Screening 2004 [facility]-/Child/Adol SDOH Screenings 2004 [facility]-IPV Vaccines (2 of 3 - 4-dose series) 02/01/2008 01/04/2008 [id number] Vaccine (#1) 01/02/2009 HPV Vaccines (3 - [...] on patient's age to complete this topic Insurance [facility] MEDICAID Care Teams Vector Control Assistant Relationship Specialty Start Date End Date Pcp, Bharti [address] [place] [address] PCP - General Family Medicine 12/31/24
--- OUTSIDE RECORDS SUMMARY | 2025-05-21 10:50 | XMS_ITS | Patient Health Record ---
Author Organization [facility] D [facility] Address [address] [place] [address] Care Team Providers Care Content Assistant Name Role Phone Mendy Stanton Primary Care Provider MENDY STANTON Unavailable Unavaila ble Allergies No [...] End Date [employer] [address] [address] [place] [address] [id number] Sharmila Nava Self - patient is the insured Medical (General) History Surgical History Surgery Date(Month/Year) Tonsils and Adenoids removed 2009
== END 2025-05-18 23:59 ==
LOC: LAB.DROPOF 05-21 10:09
PROVIDERS: PCP Nurse Practitioner; Visit Provider Nurse Practitioner
DX: J06.9 Acute upper respiratory infection, unspecified (principal)
CPT/HCPCS: 87631